=== PATIENT | female | born 1990 | race Caucasian/White ===

== ENCOUNTER 2017-11-06 20:17 | Emergency (ER) | payer MEDICAID, OTHER ==
[~2017-11-06 20:17] MED LIST: TERC45CR PV
[2017-11-06 20:53] VITALS: BP 118/78; PULSE 80; RESP 18; TEMP 98.7; O2SAT 99
[2017-11-06 22:12] LABS: BASOPHIL % 0.2 % (0.0-2.0); EOSINOPHIL # 0.2 TH/MM3 (0-0.4); EOSINOPHIL % 1.2 % (0.0-4.0); HEMATOCRIT 33.7 % (35.0-46.0); HEMOGLOBIN 11.5 GM/DL (11.6-15.3); LYMPH % 11.9 % (9.0-44.0); LYMPHOCYTE # 1.8 TH/MM3 (1.0-4.8); MEAN CELL VOLUME 86.9 FL (80.0-100.0); MEAN CORPUSCULAR HEMOGLOBIN 29.6 PG (27.0-34.0); MEAN CORPUSCULAR HGB CONC 34.1 % (32.0-36.0); MEAN PLATELET VOLUME 7.1 FL (7.0-11.0); MONO % 7.2 % (0.0-8.0); MONOCYTE # 1.1 TH/MM3 (0-0.9); NEUT % 79.5 % (16.0-70.0); PLATELET COUNT 375 TH/MM3 (150-450); RED BLOOD COUNT 3.87 MIL/MM3 (4.00-5.30); RED CELL DISTRIBUTION WIDTH 13.2 % (11.6-17.2); WHITE BLOOD COUNT 15.1 TH/MM3 (4.0-11.0)
[2017-11-06 22:14] LABS: BILIRUBIN, URINE NEG (NEG); BLOOD, URINE NEG (NEG); GLUCOSE,URINE NEG (NEG); KETONE, URINE NEG (NEG); NITRITE,URINE NEG (NEG); PH, URINE 5.5 (5.0-8.5); SQUAMOUS EPITHELIAL CELL URINE 4 /hpf (0-5); URINE COLOR LIGHT-YELLOW (YELLW/STRAW); URINE LEUKOCYTE ESTERASE NEG (NEG)
--- NOTE | 2017-11-06 22:36 | PD ---
HPI Chief Complaint: Psychiatric Symptoms Time Seen by Provider: 22:29 Travel History International Travel<30 days: No Contact w/Intl Traveler<30days: No Traveled to known affect area: No History of Present Illness HPI 27-year-old female with history of bipolar disorder presents emergency department as a Corrigan act for suicidal ideations. Patient states that she was having an argument with her mother regarding her drug addiction when she made a comment that she wanted to hurt herself. Patient states in addition her boyfriend was cheating on her. Patient states she last used IV Dilaudid today. Currently, patient states that she does not feel like she wants to hurt herself and is concerned that DCF will get involved to take her unborn child away. Patient states that she wanted to take Subutex however, states that she is unable to afford this medication so she decided to use adult Dilaudid. States that she has followed up with an printer machine here at [place] who performed an ultrasound to confirm IUP approximately 3 months ago. Patient states she found a new printer machine November 02. Patient says she has had no prior suicide attempts. She believes her mother overreacted as she saw scars on her left wrist. Currently she denies vaginal bleeding, discharge or abdominal cramping. States that she went to urgent care several days ago for an abscess of her right wrist. Says this area is still swollen. She cannot tell me the medication that she was placed on. 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) Gynecologic Surgery: Yes (high grade dysplasia 2007) Oral Surgery: No Other Surgery: Yes Social History Alcohol Use: Yes (occasionally) Tobacco Use: Yes (1 ppd) Substance Use: Yes (pot occasionally) Allergies-Medications (Allergen,Severity, Reaction): Coded Allergies: No Known Allergies (Verified , 08/07/14) Reported Meds & Prescriptions Reported Meds & Active Scripts Active Terazol 7 (Terconazole) 0.4 % Cr 1 Appl PV HS Apply until symptoms resolve Review of Systems Except as stated in HPI: all other systems reviewed are Neg Physical Exam Narrative GENERAL: WD, WN in mild distress, anxious SKIN: Warm and dry. right wrist, dorsal aspect- 2-3cm, round, fluctuant lesion with midline excision c/w pt's history of previous I&D. mild erythema over mass without extension into surrounding tissue. mildly TTP. HEAD: Normocephalic. EYES: No scleral icterus. No injection or drainage. NECK: Supple, trachea midline. No JVD or lymphadenopathy. CARDIOVASCULAR: Regular rate and rhythm without murmurs, gallops, or rubs. RESPIRATORY: Breath sounds equal bilaterally. No accessory muscle use. GASTROINTESTINAL: Abdomen soft, non-tender, nondistended. no CVA tenderness MUSCULOSKELETAL: No cyanosis, or edema. BACK: Nontender without obvious deformity. No CVA tenderness. Data Data Last Documented VS Vital Signs Date Time Temp Pulse Resp B/P (MAP) Pulse Ox O2 Delivery O2 Flow Rate FiO2 11/07/17 15:26 11/07/17 14:53 88 16 99 Room Air 11/06/17 20:53 98.7 Orders Orders Complete Blood Count With Diff (11/06/17 20:54) Comprehensive Metabolic Panel (11/06/17 20:54) Thyroid Stimulating Hormone (11/06/17 20:54) Urinalysis - C+S If Indicated (11/06/17 20:54) Psych Screen (11/06/17 20:54) Drug Screen, Random Urine (11/06/17 20:54) Alcohol (Ethanol) (11/06/17 20:54) Diet Regular Basic (11/07/17 Breakfast) Diet Regular Basic (11/07/17 Lunch) Heart Tones (11/07/17 14:42) Ed Discharge Order (11/07/17 15:27) Labs Laboratory Tests Test 11/06/17 21:20 White Blood Count 15.1 TH/MM3 Red Blood Count 3.87 MIL/MM3 Hemoglobin 11.5 GM/DL Hematocrit 33.7 % Mean Corpuscular Volume 86.9 FL Mean Corpuscular Hemoglobin 29.6 PG Mean Corpuscular Hemoglobin Concent 34.1 % Red Cell Distribution Width 13.2 % Platelet Count 375 TH/MM3 Mean Platelet Volume 7.1 FL Neutrophils (%) (Auto) 79.5 % Lymphocytes (%) (Auto) 11.9 % Monocytes (%) (Auto) 7.2 % Eosinophils (%) (Auto) 1.2 % Basophils (%) (Auto) 0.2 % Neutrophils # (Auto) 12.0 TH/MM3 Lymphocytes # (Auto) 1.8 TH/MM3 Monocytes # (Auto) 1.1 TH/MM3 Eosinophils # (Auto) 0.2 TH/MM3 Basophils # (Auto) 0.0 TH/MM3 CBC Comment DIFF FINAL Differential Comment Urine Color LIGHT-YELLOW Urine Turbidity CLEAR Urine pH 5.5 Urine Specific [place] 1.005 Urine Protein NEG mg/dL Urine Glucose (UA) NEG mg/dL Urine Ketones NEG mg/dL Urine Occult Blood NEG Urine Nitrite NEG Urine Bilirubin NEG Urine Urobilinogen LESS THAN 2.0 MG/DL Urine Leukocyte Esterase NEG Urine RBC LESS THAN 1 /hpf Urine WBC 1 /hpf Urine Squamous Epithelial Cells 4 /hpf Microscopic Urinalysis Comment CULT NOT INDICATED Blood Urea Nitrogen 9 MG/DL Creatinine 0.54 MG/DL Random Glucose 75 MG/DL Total Protein 7.6 GM/DL Albumin 3.0 GM/DL Calcium Level 9.0 MG/DL Alkaline Phosphatase 165 U/L Aspartate Amino Transf (AST/SGOT) 38 U/L Alanine Aminotransferase (ALT/SGPT) 43 U/L Total Bilirubin 0.4 MG/DL Sodium Level 135 MEQ/L Potassium Level 4.4 MEQ/L Chloride Level 101 MEQ/L Carbon Dioxide Level 24.5 MEQ/L Anion Gap 10 MEQ/L Estimat Glomerular Filtration Rate 135 ML/MIN Thyroid Stimulating Hormone 3rd Gen 0.794 uIU/ML Urine Opiates Screen POS Urine Barbiturates Screen NEG Urine Amphetamines Screen NEG Urine Benzodiazepines Screen NEG Urine Cocaine Screen NEG Urine Cannabinoids Screen POS Ethyl Alcohol Level LESS THAN 3 MG/DL MDM Medical Decision Making Medical Screen Exam Complete: Yes Emergency Medical Condition: Yes Differential Diagnosis Left wrist abscess, cellulitis, erysipelas SI, HI, malingering, polysubstance use/abuse Narrative Course 27-year-old female presents to the emergency department as a Corrigan act for suicidal ideations. She currently denies SI or HI however. She is concerned about detox and her unborn child. Laboratory Tests Test 11/06/17 21:20 White Blood Count 15.1 TH/MM3 Red Blood Count 3.87 MIL/MM3 Hemoglobin 11.5 GM/DL Hematocrit 33.7 % Mean Corpuscular Volume 86.9 FL Mean Corpuscular Hemoglobin 29.6 PG Mean Corpuscular Hemoglobin Concent 34.1 % Red Cell Distribution Width 13.2 % Platelet Count 375 TH/MM3 Mean Platelet Volume 7.1 FL Neutrophils (%) (Auto) 79.5 % Lymphocytes (%) (Auto) 11.9 % Monocytes (%) (Auto) 7.2 % Eosinophils (%) (Auto) 1.2 % Basophils (%) (Auto) 0.2 % Neutrophils # (Auto) 12.0 TH/MM3 Lymphocytes # (Auto) 1.8 TH/MM3 Monocytes # (Auto) 1.1 TH/MM3 Eosinophils # (Auto) 0.2 TH/MM3 Basophils # (Auto) 0.0 TH/MM3 CBC Comment DIFF FINAL Differential Comment Urine Color LIGHT-YELLOW Urine Turbidity CLEAR Urine pH 5.5 Urine Specific [place] 1.005 Urine Protein NEG mg/dL Urine Glucose (UA) NEG mg/dL Urine Ketones NEG mg/dL Urine Occult Blood NEG Urine Nitrite NEG Urine Bilirubin NEG Urine Urobilinogen LESS THAN 2.0 MG/DL Urine Leukocyte Esterase NEG Urine RBC LESS THAN 1 /hpf Urine WBC 1 /hpf Urine Squamous Epithelial Cells 4 /hpf Microscopic Urinalysis Comment CULT NOT INDICATED Blood Urea Nitrogen 9 MG/DL Creatinine 0.54 MG/DL Random Glucose 75 MG/DL Total Protein 7.6 GM/DL Albumin 3.0 GM/DL Calcium Level 9.0 MG/DL Alkaline Phosphatase 165 U/L Aspartate Amino Transf (AST/SGOT) 38 U/L Alanine Aminotransferase (ALT/SGPT) 43 U/L Total Bilirubin 0.4 MG/DL Sodium Level 135 MEQ/L Potassium Level 4.4 MEQ/L Chloride Level 101 MEQ/L Carbon Dioxide Level 24.5 MEQ/L Anion Gap 10 MEQ/L Estimat Glomerular Filtration Rate 135 ML/MIN Thyroid Stimulating Hormone 3rd Gen 0.794 uIU/ML Urine Opiates Screen POS Urine Barbiturates Screen NEG Urine Amphetamines Screen NEG Urine Benzodiazepines Screen NEG Urine Cocaine Screen NEG Urine Cannabinoids Screen POS Ethyl Alcohol Level LESS THAN 3 MG/DL UDS POD for cannabanoids and opiates. WBCs elevated, likely secondary to her status. I&D of abscess performed. Pt recently completed a course of abx. Need wound check within 2 days by her primary care physician. Pt is medically cleared to see Psych. Procedures Procedure Narrative INCISION AND DRAINAGE OF ABSCESS: The area was prepped and was sterilely draped. A subcutaneous wheal of 2 % Xylocaine with a total number 1 mL was used to anesthetize the area properly. A number 11 scalpel was used to make a 1 -cm incision across the area of the abscess. The abscess was drained, complex loculations were broken down, and irrigated with normal saline. Quarter inch iodoform packing was placed in the wound. Sterile dressing applied. Patient advised to have packing removed in two days. Diagnosis Primary Impression: Suicidal ideations Additional Impressions: Abscess Qualified Codes: Z34.90 - Encounter for supervision of normal , unspecified, unspecified trimester Substance use disorder Admitting Information Admitting Physician Requests: Observation Condition: Stable Carlie Modi Nov 06, 2017 22:36
[2017-11-06 22:40] LABS: AST (GOT) 38 U/L (15-37); BICARBONATE 24.5 MEQ/L (21.0-32.0); BLOOD UREA NITROGEN 9 MG/DL (7-18); CHLORIDE 101 MEQ/L (98-107); CREATININE 0.54 MG/DL (0.50-1.00); GLOMERULAR FILTRATION RATE 135 ML/MIN (>89); GLUCOSE,RANDOM 75 MG/DL (74-106); SODIUM (NA) 135 MEQ/L (136-145)
[2017-11-06 22:41] LABS: ALT (GPT) 43 U/L (10-53)
[2017-11-06 22:51] LABS: ALKALINE PHOSPHATASE 165 U/L (45-117); TOTAL BILIRUBIN ADULT 0.4 MG/DL (0.2-1.0); TOTAL PROTEIN 7.6 GM/DL (6.4-8.2)
[2017-11-07 02:23] VITALS: BP 129/57; PULSE 101; RESP 18
[2017-11-07 10:10] VITALS: BP 115/61; PULSE 107; RESP 20
[2017-11-07 14:53] VITALS: BP 101/49; PULSE 88; RESP 16; O2SAT 99
--- NOTE | 2017-11-07 15:17 | PD ---
History of Present Illness Chief Complaint: Psychiatric Symptoms Time Seen by Provider: 14:00 Travel History International Travel<30 Days: No Contact w/Intl Traveler<30days: No Known affected area: No Legal Status Legal Status: Corrigan Act Corrigan Act Signed By: Farida Plaza Corrigan Act Comment: 2017 @ 1912 History of Present Illness: History of Present Illness 27-year-old female with reported history of bipolar disorder, approximately 3 months who presents to the emergency department as a Corrigan act initiated by law enforcement for psychiatric evaluation. The report alleges that while involved in an argument with her mother she threatened that she would hurt herself by cutting herself. She then left the house. The patient did not make any attempt at harming herself. She denied any suicidal ideation to ED provider and presented concerns regarding DCF taking her unborn child away. She also reported to them that her mother had just overreacted. She was monitored in secure environment and presented no behavioral concerns and no suicidality. Current toxicology is positive for opiates and cannabinoids. EMR is reviewed. No previous contact with [facility] psychiatry. She didn't receive some services from [facility] back in 2005. Patient is seen. She is alert, oriented, engaging. Dressed in [facility] with fair hygiene. Speech is clear and logical. There is no evidence of any unstable mental illness. There is no psychosis, no venice, no hypomania. She denies any suicidal or homicidal ideation, intent or plan. She expresses her concern over her unborn child and DCF possibly taking custody due to her continued use of substances. She is asking for detox services. I called [facility] detox. Patient is a priority since she is . Does not need to go on wait list. 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) Gynecologic Surgery: Yes (high grade dysplasia 2007) Oral Surgery: No Other Surgery: Yes Psychiatric History Psychiatric History Hx Psychiatric Treatment: Reports history of BI- POLAR DISORDER. Does not take psychiatric medication. No previous history of suicide attempts. Does have a history of self-injurious behavior by cutting. History of Inpatient Treatment: No Guns or firearms in home: No Social History Single female. Lives with her mother. Hx Alcohol Use: Yes (occasionally) Hx Tobacco Use: Yes (1 ppd) Hx Substance Use: Yes Substance Use Type: Marijuana, Prescription Medications, Synth Opiates-Pain Pills Hx of Substance Use Treatment: No Family Psychiatric History Negative Allergies-Medications (Allergen,Severity, Reaction): Coded Allergies: No Known Allergies (Verified , 08/07/14) Reported Meds & Prescriptions Reported Meds & Active Scripts Active Terazol 7 (Terconazole) 0.4 % Cr 1 Appl PV HS Apply until symptoms resolve Review of Systems Gastrointestinal: COMPLAINS OF: Nausea Mental Status Examination Appearance: Appropriate (in [facility]) Consciousness: Alert Orientation: x4 Motor Activity: Normal gait Speech: Unremarkable Language: Adequate Fund of Knowledge: Adequate Attention and Concentration: Adequate Memory: Unremarkable Mood: Appropriate Affect: Appropriate Thought Process & Associations: Intact, Logical, Goal directed Thought Content: Appropriate Hallucination Type: None Delusion Type: None Suicidal Ideation: No Suicidal Plan: No Suicidal Intention: No Homicidal Ideation: No Homicidal Plan: No Homicidal Intention: No Insight: Fair Judgment: Adequate [facility] Medical Decision Making Medical Record Reviewed: Yes Assessment/Plan 27-year-old female with reported history of bipolar disorder, approximately 3 months who presents to the emergency department as a Corrigan act initiated by law enforcement for psychiatric evaluation. The report alleges that while involved in an argument with her mother she threatened that she would hurt herself by cutting herself. The patient did not make any attempt at harming herself. She was monitored in secure environment and presented no behavioral concerns and no suicidality. She denies any suicidal or homicidal ideation intent or plan. She is concerned over the possibility of DCF becoming involved with her unborn child. She is wanting to go to detox. Arrangements have been made to transfer the patient to [facility] detox from [facility]. BA is lifted. Psychiatrically clear for discharge from ED. Orders Orders Complete Blood Count With Diff (11/06/17 20:54) Comprehensive Metabolic Panel (11/06/17 20:54) Thyroid Stimulating Hormone (11/06/17 20:54) Urinalysis - C+S If Indicated (11/06/17 20:54) Psych Screen (11/06/17 20:54) Drug Screen, Random Urine (11/06/17 20:54) Alcohol (Ethanol) (11/06/17 20:54) Diet Regular Basic (11/07/17 Breakfast) Diet Regular Basic (11/07/17 Lunch) Heart Tones (11/07/17 14:42) Results Vital Signs Date Time Temp Pulse Resp B/P (MAP) Pulse Ox O2 Delivery O2 Flow Rate FiO2 11/07/17 14:53 88 16 101/49 (66) 99 Room Air 11/07/17 10:10 107 20 115/61 (79) 11/07/17 02:23 101 18 129/57 (81) Room Air 11/06/17 20:53 98.7 80 18 118/78 (91) 99 Laboratory Tests Test 11/06/17 21:20 White Blood Count 15.1 Red Blood Count 3.87 Hemoglobin 11.5 Hematocrit 33.7 Mean Corpuscular Volume 86.9 Mean Corpuscular Hemoglobin 29.6 Mean Corpuscular Hemoglobin Concent 34.1 Red Cell Distribution Width 13.2 Platelet Count 375 Mean Platelet Volume 7.1 Neutrophils (%) (Auto) 79.5 Lymphocytes (%) (Auto) 11.9 Monocytes (%) (Auto) 7.2 Eosinophils (%) (Auto) 1.2 Basophils (%) (Auto) 0.2 Neutrophils # (Auto) 12.0 Lymphocytes # (Auto) 1.8 Monocytes # (Auto) 1.1 Eosinophils # (Auto) 0.2 Basophils # (Auto) 0.0 CBC Comment DIFF FINAL Differential Comment Urine Color LIGHT-YELLOW Urine Turbidity CLEAR Urine pH 5.5 Urine Specific [place] 1.005 Urine Protein NEG Urine Glucose (UA) NEG Urine Ketones NEG Urine Occult Blood NEG Urine Nitrite NEG Urine Bilirubin NEG Urine Urobilinogen LESS THAN 2.0 Urine Leukocyte Esterase NEG Urine RBC LESS THAN 1 Urine WBC 1 Urine Squamous Epithelial Cells 4 Microscopic Urinalysis Comment CULT NOT INDICATED Blood Urea Nitrogen 9 Creatinine 0.54 Random Glucose 75 Total Protein 7.6 Albumin 3.0 Calcium Level 9.0 Alkaline Phosphatase 165 Aspartate Amino Transf (AST/SGOT) 38 Alanine Aminotransferase (ALT/SGPT) 43 Total Bilirubin 0.4 Sodium Level 135 Potassium Level 4.4 Chloride Level 101 Carbon Dioxide Level 24.5 Anion Gap 10 Estimat Glomerular Filtration Rate 135 Thyroid Stimulating Hormone 3rd Gen 0.794 Urine Opiates Screen POS Urine Barbiturates Screen NEG Urine Amphetamines Screen NEG Urine Benzodiazepines Screen NEG Urine Cocaine Screen NEG Urine Cannabinoids Screen POS Ethyl Alcohol Level LESS THAN 3 Diagnosis Primary Impression: Opiate abuse, continuous Ruled Out: Suicidal ideations Psychiatrically Cleared: Yes Med/ Other Pt Specific Info: No Meds Exist/No RX given Disposition: 65 DISC TO PSYCH CARE FACILITY Condition: Stable Mariama Deal [facility] Nov 07, 2017 15:17
--- NOTE | 2017-11-07 15:27 | PD ---
Physical Exam Time Seen by Provider: 15:25 MICHELE Dinero has evaluated the patient, lifted Corrigan act and cleared the patient for discharge. The patient is being transported by [facility] transportation to [facility] for detox. Data Data Last Documented VS Vital Signs Date Time Temp Pulse Resp B/P (MAP) Pulse Ox O2 Delivery O2 Flow Rate FiO2 11/07/17 15:26 11/07/17 14:53 88 16 99 Room Air 11/06/17 20:53 98.7 Orders Orders Complete Blood Count With Diff (11/06/17 20:54) Comprehensive Metabolic Panel (11/06/17 20:54) Thyroid Stimulating Hormone (11/06/17 20:54) Urinalysis - C+S If Indicated (11/06/17 20:54) Psych Screen (11/06/17 20:54) Drug Screen, Random Urine (11/06/17 20:54) Alcohol (Ethanol) (11/06/17 20:54) Diet Regular Basic (11/07/17 Breakfast) Diet Regular Basic (11/07/17 Lunch) Heart Tones (11/07/17 14:42) Ed Discharge Order (11/07/17 15:27) Labs Laboratory Tests Test 11/06/17 21:20 White Blood Count 15.1 TH/MM3 Red Blood Count 3.87 MIL/MM3 Hemoglobin 11.5 GM/DL Hematocrit 33.7 % Mean Corpuscular Volume 86.9 FL Mean Corpuscular Hemoglobin 29.6 PG Mean Corpuscular Hemoglobin Concent 34.1 % Red Cell Distribution Width 13.2 % Platelet Count 375 TH/MM3 Mean Platelet Volume 7.1 FL Neutrophils (%) (Auto) 79.5 % Lymphocytes (%) (Auto) 11.9 % Monocytes (%) (Auto) 7.2 % Eosinophils (%) (Auto) 1.2 % Basophils (%) (Auto) 0.2 % Neutrophils # (Auto) 12.0 TH/MM3 Lymphocytes # (Auto) 1.8 TH/MM3 Monocytes # (Auto) 1.1 TH/MM3 Eosinophils # (Auto) 0.2 TH/MM3 Basophils # (Auto) 0.0 TH/MM3 CBC Comment DIFF FINAL Differential Comment Urine Color LIGHT-YELLOW Urine Turbidity CLEAR Urine pH 5.5 Urine Specific [place] 1.005 Urine Protein NEG mg/dL Urine Glucose (UA) NEG mg/dL Urine Ketones NEG mg/dL Urine Occult Blood NEG Urine Nitrite NEG Urine Bilirubin NEG Urine Urobilinogen LESS THAN 2.0 MG/DL Urine Leukocyte Esterase NEG Urine RBC LESS THAN 1 /hpf Urine WBC 1 /hpf Urine Squamous Epithelial Cells 4 /hpf Microscopic Urinalysis Comment CULT NOT INDICATED Blood Urea Nitrogen 9 MG/DL Creatinine 0.54 MG/DL Random Glucose 75 MG/DL Total Protein 7.6 GM/DL Albumin 3.0 GM/DL Calcium Level 9.0 MG/DL Alkaline Phosphatase 165 U/L Aspartate Amino Transf (AST/SGOT) 38 U/L Alanine Aminotransferase (ALT/SGPT) 43 U/L Total Bilirubin 0.4 MG/DL Sodium Level 135 MEQ/L Potassium Level 4.4 MEQ/L Chloride Level 101 MEQ/L Carbon Dioxide Level 24.5 MEQ/L Anion Gap 10 MEQ/L Estimat Glomerular Filtration Rate 135 ML/MIN Thyroid Stimulating Hormone 3rd Gen 0.794 uIU/ML Urine Opiates Screen POS Urine Barbiturates Screen NEG Urine Amphetamines Screen NEG Urine Benzodiazepines Screen NEG Urine Cocaine Screen NEG Urine Cannabinoids Screen POS Ethyl Alcohol Level LESS THAN 3 MG/DL MDM Supervised Visit with ARNOLD: No Narrative Course MICHELE Leslie has evaluated the patient, lifted Meenu kemp and cleared the patient for discharge. The patient is being transported by [employer] transportation to [facility] for detox. Patient contracts safety. Denies suicidal or homicidal ideations. Patient will be provided community resource packet to [facility] for follow-up. Has friends and family for support. Patient was medically cleared by alternate provider prior to psych screening. Patient has been evaluated by psychiatry and and is now cleared for discharge. Diagnosis Primary Impression: Suicidal ideations Additional Impressions: Abscess Referrals: [facility] (Out patient) [facility] [employer] Primary Care Physician Psychiatrist Pau[facility] Patient Instructions: General Instructions, Suicide Prevention for Adults (ED) Additional Instruction: Contract safety to your self and others Stop using drugs Follow-up with psychiatry Follow-up with primary care provider Follow-up with Blake Uiras Follow-up with instructor technical training Return to the emergency department immediately with worsening of symptoms Med/Other Pt SpecificInfo: No Change to Meds, No Meds Exist/No RX given Disposition: DISCHARGE HOME Condition: Stable Ling Bass Nov 07, 2017 15:27
== END 2017-11-07 15:50 | disposition home or self-care (01) ==
LOC: NEDAMB 20:17 → NEPJ 11-07 15:50
DX: O26.891 Other specified pregnancy related conditions, first trimester (principal); R45.851 Suicidal ideations; L02.413 Cutaneous abscess of right upper limb; D72.829 Elevated white blood cell count, unspecified; F31.9 Bipolar disorder, unspecified; F17.200 Nicotine dependence, unspecified, uncomplicated; F11.10 Opioid abuse, uncomplicated; Z79.899 Other long term (current) drug therapy; Z3A.00 Weeks of gestation of pregnancy not specified
CPT/HCPCS: 10061; 80053; 80307; 81001; 84443; 85025